=== PATIENT | female | born 1960 | race Caucasian/White ===

== ENCOUNTER 2019-12-31 06:28 | Inpatient (IN) ==
[2019-12-31] MEDS ORDERED: 0.9 % Sodium Chloride 1,000 ML IVC ONE (06:58)
[2019-12-31] MEDS ORDERED: Ondansetron 4 MG/2 ML VIAL IVP ONE ×2 (06:58→08:41)
[2019-12-31] MEDS ORDERED: *HR* HYDROmorphone (PF) 1 MG/ML SYRINGE IVP ONE ×2 (06:59→08:41)
[2019-12-31 07:17] LABS: Basophils # 0.1 K/mcL (0.0-0.2); Basophils % 0.9 %; Eosinophils % 0.3 %; Hemoglobin 13.9 g/dL (11.5-15.4); Immature Granulocytes % 0.4 % (0-4); Lymphocytes # 1.1 K/mcL (0.6-4.6); Lymphocytes % 16.5 %; Mean Corpuscular HGB Conc 32.3 g/dL (31.6-35.5); Mean Corpuscular Hemoglobin 30.5 pg (28.0-33.3); Mean Corpuscular Volume 94.3 fL (83.0-100.0); Mean Platelet Volume 9.5 fL (9.4-12.4); Monocytes # 0.4 K/mcL (0.0-1.3); Monocytes % 6.2 %; Neutrophils # 5.2 K/mcL (1.6-8.9); Platelet Count 318 K/mcL (140-400); Red Blood Count 4.56 M/mcL (3.82-4.97); Red Cell Distribution Width 12.7 % (11.5-14.5); Segmented Neutrophils % 75.7 %; White Blood Count 6.9 K/mcL (4.3-11.1)
[2019-12-31 08:00] LABS: Alanine Aminotransferase 31 Units/L (7-52); Albumin 4.8 g/dL (3.5-5.7); Albumin/Globulin Ratio 1.7 (1.1-2.2); Alkaline Phosphatase 70 Units/L (34-104); Aspartate Amino Transferase 30 Units/L (13-39); BUN/Creatinine Ratio 20 (6-26); Bilirubin,Direct 0.1 mg/dL (0.0-0.2); Bilirubin,Indirect 0.3 mg/dL (0.0-1.0); Bilirubin,Total 0.4 mg/dL (0.3-1.0); Blood Urea Nitrogen 16 mg/dL (6-20); Calcium 9.6 mg/dL (8.6-10.3); Carbon Dioxide 24 mEq/L (23-29); Chloride 104 mEq/L (98-107); Globulin 2.8 g/dL (2.4-3.5); Glucose 121 mg/dL (70-105); Osmolality,Calculated 290 (280-300); Potassium 3.8 mEq/L (3.5-5.1); Sodium 139 mEq/L (136-145); Total Protein 7.6 g/dL (6.4-8.9); Troponin I < 0.03 ng/mL (< 0.04); eGFR For African Americans > 60 (> 60); eGFR For Non-African Americans > 60 (> 60)
[2019-12-31] MEDS ORDERED: GI Cocktail 40 ML EACH PO ONE (08:20)
[2019-12-31] MEDS ORDERED: Pantoprazole 40 MG VIAL IVP ONE (08:20)
[2019-12-31 08:40] LABS: Lipase 70 Units/L (11-82)
[2019-12-31] MEDS ORDERED: Naloxone 0.4 MG/ML INJ IVP PRN ×2 (09:13→18:59)
[2019-12-31] MEDS ORDERED: Isovue-370 500 ML BOTTLE IVP ONE (09:14)
[2019-12-31] MEDS ORDERED: Ringers Solution, Lactated 1,000 ML IVC SCH (09:15)
[2019-12-31] MEDS ORDERED: Ondansetron 4 MG/2 ML VIAL IVP PRN ×3 (09:16→18:59)
[2019-12-31] MEDS ORDERED: Morphine Sulfate 2 MG/ML SYRINGE IVP PRN (09:17)
[2019-12-31] MEDS ORDERED: *HR* FentaNYL (PF) 100 MCG/2 ML VIAL ONE ×2 (13:06→14:39)
[2019-12-31] MEDS ORDERED: *HR* Midazolam HCl 2 MG/2 ML VIAL ONE (13:06)
[2019-12-31] MEDS ORDERED: *HR* Propofol 200 MG/20 ML VIAL IVP ONE (13:07)
[2019-12-31] MEDS ORDERED: Lidocaine HCL 4 ML Topical Solution (Laryng-O-Jet Kit Sterile Pak) TP ONE (13:12)
[2019-12-31] MEDS ORDERED: Acetaminophen IV 1,000 MG/100 ML INFUS..BTL ONE (14:12)
[2019-12-31] MEDS ORDERED: Ondansetron 4 MG/2 ML VIAL ONE (15:27)
[2019-12-31] MEDS ORDERED: Lidocaine -MPF 2% 2 ML VIAL ONE (15:28)
[2019-12-31] MEDS ORDERED: *HR* Rocuronium Bromide 50 MG/5 ML VIAL ONE ×2 (15:28→15:49)
[2019-12-31] MEDS ORDERED: CefOXitin 2,000 MG VIAL ONE (15:28)
[2019-12-31] MEDS ORDERED: *HR* Succinylcholine 200 MG/10 ML VIAL IVP ONE (15:28)
[2019-12-31] MEDS ORDERED: *HR* HYDROMORPHONE 2 MG/ML VIAL ONE (17:01)
[2019-12-31] MEDS ORDERED: *HR* HYDROmorphone PF 0.5 MG/0.5 ML SYRINGE IVP PRN (17:29)
[2019-12-31] MEDS ORDERED: *HR* FentaNYL (PF) 100 MCG/2 ML VIAL IVP PRN (17:29)
[2019-12-31] MEDS: *HR* Midazolam HCl 2 MG/2 ML VIAL IVP PRN ×2 (17:44→18:03)
[2019-12-31] MEDS ORDERED: Pantoprazole 40 MG VIAL IVP SCH (18:00)
[2019-12-31] MEDS ORDERED: *HR* Heparin 5,000 UNIT/ML VIAL SQ SCH (18:00)
[2019-12-31] MEDS: 0.9 % Sodium Chloride 1,000 ML IVC SCH (20:54)
[2019-12-31] MEDS: Morphine PCA 30 MG/ 30 ML 30 ML PCA.VIAL IVC PRN (20:54)
[2020-01-01] MEDS: Pantoprazole 40 MG VIAL IVP SCH ×2 (06:12→18:17)
[2020-01-01] MEDS: *HR* Heparin 5,000 UNIT/ML VIAL SQ SCH ×2 (06:12→18:17)
[2020-01-01] MEDS: 0.9 % Sodium Chloride 1,000 ML IVC SCH ×2 (06:13→16:35)
[2020-01-01 08:57] LABS: Basophils % 0.2 %; Eosinophils % 0.1 %; Hematocrit 40.7 % (35.3-44.9); Hemoglobin 12.9 g/dL (11.5-15.4); Immature Granulocytes % 0.3 % (0-4); Lymphocytes # 1.5 K/mcL (0.6-4.6); Lymphocytes % 12.8 %; Mean Corpuscular HGB Conc 31.7 g/dL (31.6-35.5); Mean Corpuscular Hemoglobin 30.1 pg (28.0-33.3); Mean Corpuscular Volume 95.1 fL (83.0-100.0); Monocytes # 0.8 K/mcL (0.0-1.3); Monocytes % 6.5 %; Neutrophils # 9.3 K/mcL (1.6-8.9); Platelet Count 283 K/mcL (140-400); Red Blood Count 4.28 M/mcL (3.82-4.97); Red Cell Distribution Width 13.1 % (11.5-14.5); Segmented Neutrophils % 80.1 %; White Blood Count 11.6 K/mcL (4.3-11.1)
[2020-01-01 09:17] LABS: BUN/Creatinine Ratio 28 (6-26); Blood Urea Nitrogen 16 mg/dL (6-20); Calcium 8.3 mg/dL (8.6-10.3); Carbon Dioxide 23 mEq/L (23-29); Chloride 106 mEq/L (98-107); Glucose 100 mg/dL (70-105); Osmolality,Calculated 281 (280-300); Potassium 4.1 mEq/L (3.5-5.1); Sodium 135 mEq/L (136-145); eGFR For African Americans > 60 (> 60); eGFR For Non-African Americans > 60 (> 60)
[2020-01-01 10:00] LABS: Magnesium 1.8 mg/dL (1.6-2.6); Phosphorous 2.7 mg/dL (2.7-4.5)
[2020-01-01] MEDS: Morphine PCA 30 MG/ 30 ML 30 ML PCA.VIAL IVC PRN (11:06)
[2020-01-01] MEDS ORDERED: Ketorolac 30 MG/ML VIAL IVP ONE (11:35)
[2020-01-01] MEDS ORDERED: Acetaminophen IV 1,000 MG/100 ML INFUS..BTL IVPB ONE (11:35)
[2020-01-01] MEDS: Ketorolac 15 MG/ML VIAL IVP SCH ×2 (12:02→18:17)
[2020-01-02] MEDS: Ketorolac 15 MG/ML VIAL IVP SCH ×4 (00:56→20:09)
[2020-01-02 05:07] LABS: Basophils # 0.1 K/mcL (0.0-0.2); Basophils % 0.5 %; Eosinophils # 0.1 K/mcL (0.0-0.6); Eosinophils % 0.6 %; Hematocrit 36.4 % (35.3-44.9); Hemoglobin 11.6 g/dL (11.5-15.4); Immature Granulocytes % 0.4 % (0-4); Lymphocytes % 17.4 %; Mean Corpuscular HGB Conc 31.9 g/dL (31.6-35.5); Mean Corpuscular Hemoglobin 30.5 pg (28.0-33.3); Mean Corpuscular Volume 95.8 fL (83.0-100.0); Mean Platelet Volume 10.4 fL (9.4-12.4); Monocytes # 0.9 K/mcL (0.0-1.3); Monocytes % 7.6 %; Neutrophils # 8.3 K/mcL (1.6-8.9); Nucleated Red Blood Cells 0.2 /100 WBC (0); Platelet Count 226 K/mcL (140-400); Red Cell Distribution Width 13.2 % (11.5-14.5); Segmented Neutrophils % 73.5 %; White Blood Count 11.3 K/mcL (4.3-11.1)
[2020-01-02 05:18] LABS: BUN/Creatinine Ratio 29 (6-26); Blood Urea Nitrogen 17 mg/dL (6-20); Calcium 7.9 mg/dL (8.6-10.3); Carbon Dioxide 16 mEq/L (23-29); Chloride 108 mEq/L (98-107); Glucose 61 mg/dL (70-105); Osmolality,Calculated 281 (280-300); Sodium 136 mEq/L (136-145); eGFR For African Americans > 60 (> 60); eGFR For Non-African Americans > 60 (> 60)
[2020-01-02] MEDS ORDERED: *HR* Dextrose 50 % in Water (Vial) 50 ML VIAL IVP ONE (05:29)
[2020-01-02] MEDS ORDERED: *HR* Dextrose 50 % in Water (Vial) 50 ML VIAL IVP PRN (05:55)
[2020-01-02] MEDS: Pantoprazole 40 MG VIAL IVP SCH ×2 (06:06→20:10)
[2020-01-02] MEDS: *HR* Heparin 5,000 UNIT/ML VIAL SQ SCH ×2 (06:07→20:09)
[2020-01-02] MEDS: 0.9 % Sodium Chloride 1,000 ML IVC SCH (06:08)
[2020-01-02] MEDS ORDERED: Sodium Bicarbonate 50 MEQ in 0.45 % Sodium Chloride 1,000 ML IVC SCH (08:00)
[2020-01-02] MEDS: D5% in 0.45% NACL w KCl 20 MEQ/1,000 ML MLS IVC SCH (14:56)
[2020-01-02] MEDS: Morphine PCA 30 MG/ 30 ML 30 ML PCA.VIAL IVC PRN (17:59)
[2020-01-03] MEDS: Ketorolac 15 MG/ML VIAL IVP SCH ×3 (05:19→11:23)
[2020-01-03] MEDS: Pantoprazole 40 MG VIAL IVP SCH ×2 (05:19→18:48)
[2020-01-03] MEDS: *HR* Heparin 5,000 UNIT/ML VIAL SQ SCH ×2 (05:20→17:02)
[2020-01-03] MEDS: D5% in 0.45% NACL w KCl 20 MEQ/1,000 ML MLS IVC SCH (05:29)
[2020-01-03 07:05] LABS: Basophils # 0.1 K/mcL (0.0-0.2); Basophils % 0.7 %; Eosinophils # 0.2 K/mcL (0.0-0.6); Eosinophils % 2.2 %; Hematocrit 31.7 % (35.3-44.9); Hemoglobin 10.1 g/dL (11.5-15.4); Immature Granulocytes % 0.3 % (0-4); Lymphocytes # 1.5 K/mcL (0.6-4.6); Lymphocytes % 19.5 %; Mean Corpuscular HGB Conc 31.9 g/dL (31.6-35.5); Mean Corpuscular Hemoglobin 30.7 pg (28.0-33.3); Mean Corpuscular Volume 96.4 fL (83.0-100.0); Monocytes # 0.6 K/mcL (0.0-1.3); Monocytes % 7.8 %; Neutrophils # 5.3 K/mcL (1.6-8.9); Platelet Count 235 K/mcL (140-400); Red Blood Count 3.29 M/mcL (3.82-4.97); Segmented Neutrophils % 69.5 %; White Blood Count 7.6 K/mcL (4.3-11.1)
[2020-01-03 07:09] LABS: BUN/Creatinine Ratio 12 (6-26); Blood Urea Nitrogen 6 mg/dL (6-20); Calcium 8.3 mg/dL (8.6-10.3); Carbon Dioxide 26 mEq/L (23-29); Chloride 106 mEq/L (98-107); Glucose 115 mg/dL (70-105); Osmolality,Calculated 283 (280-300); Potassium 3.3 mEq/L (3.5-5.1); Sodium 137 mEq/L (136-145); eGFR For African Americans > 60 (> 60); eGFR For Non-African Americans > 60 (> 60)
[2020-01-03] MEDS ORDERED: Acetaminophen 325 MG TABLET PO PRN (10:31)
[2020-01-03] MEDS ORDERED: Ondansetron 4 MG/2 ML VIAL IVP PRN (10:32)
[2020-01-03] MEDS: (Lamotrigine [Lamictal Xr] 50 MG) PO SCH (20:49)
[2020-01-04] MEDS ORDERED: Morphine Sulfate 2 MG/ML SYRINGE IVP ONE (00:11)
[2020-01-04] MEDS: 0.9 % Sodium Chloride 1,000 ML IVC SCH (01:52)
[2020-01-04] MEDS: Pantoprazole 40 MG VIAL IVP SCH (06:23)
[2020-01-04] MEDS: *HR* Heparin 5,000 UNIT/ML VIAL SQ SCH ×2 (06:23→18:49)
[2020-01-04 06:34] LABS: Basophils % 0.5 %; Eosinophils # 0.2 K/mcL (0.0-0.6); Hematocrit 32.8 % (35.3-44.9); Hemoglobin 10.9 g/dL (11.5-15.4); Immature Granulocytes % 0.3 % (0-4); Lymphocytes # 1.1 K/mcL (0.6-4.6); Lymphocytes % 17.5 %; Mean Corpuscular HGB Conc 33.2 g/dL (31.6-35.5); Mean Corpuscular Hemoglobin 31.2 pg (28.0-33.3); Monocytes # 0.6 K/mcL (0.0-1.3); Monocytes % 9.9 %; Neutrophils # 4.3 K/mcL (1.6-8.9); Platelet Count 269 K/mcL (140-400); Red Blood Count 3.49 M/mcL (3.82-4.97); Red Cell Distribution Width 13.1 % (11.5-14.5); Segmented Neutrophils % 68.8 %; White Blood Count 6.3 K/mcL (4.3-11.1)
[2020-01-04 07:10] LABS: BUN/Creatinine Ratio 15 (6-26); Blood Urea Nitrogen 7 mg/dL (6-20); Calcium 8.5 mg/dL (8.6-10.3); Carbon Dioxide 25 mEq/L (23-29); Chloride 105 mEq/L (98-107); Glucose 113 mg/dL (70-105); Magnesium 1.6 mg/dL (1.6-2.6); Osmolality,Calculated 285 (280-300); Phosphorous 2.4 mg/dL (2.7-4.5); Sodium 138 mEq/L (136-145); eGFR For African Americans > 60 (> 60); eGFR For Non-African Americans > 60 (> 60)
[2020-01-04] MEDS ORDERED: Orphenadrine 60 MG/2 ML VIAL IVP ONE (07:59)
[2020-01-04] MEDS ORDERED: Potassium Phosphate 44 MEQ in 0.9 % Sodium Chloride 250 ML IVPB ONE (09:00)
[2020-01-04] MEDS: Ibuprofen 800 MG TABLET PO SCH ×3 (09:29→23:53)
[2020-01-04] MEDS ORDERED: Potassium Chloride 40 MEQ, Lidocaine 1% 2 ML in 0.9 % Sodium Chloride 500 ML IVPB ONE (09:47)
[2020-01-04] MEDS: Acetaminophen 325 MG TABLET PO SCH ×2 (13:20→20:26)
[2020-01-04] MEDS: (Lamotrigine [Lamictal Xr] 50 MG) PO SCH (20:27)
[2020-01-04] MEDS: *HR* OxyCODONE/APAP 5/325 TABLET PO PRN (23:57)
[2020-01-05] MEDS: Acetaminophen 325 MG TABLET PO SCH (03:05)
[2020-01-05] MEDS: *HR* Heparin 5,000 UNIT/ML VIAL SQ SCH (06:16)
[2020-01-05] MEDS: *HR* OxyCODONE/APAP 5/325 TABLET PO PRN (06:16)
[2020-01-05 06:40] LABS: Basophils # 0.1 K/mcL (0.0-0.2); Basophils % 0.9 %; Eosinophils # 0.3 K/mcL (0.0-0.6); Eosinophils % 5.3 %; Hematocrit 32.1 % (35.3-44.9); Hemoglobin 10.4 g/dL (11.5-15.4); Immature Granulocytes % 0.4 % (0-4); Lymphocytes # 1.2 K/mcL (0.6-4.6); Lymphocytes % 22.8 %; Mean Corpuscular HGB Conc 32.4 g/dL (31.6-35.5); Mean Corpuscular Hemoglobin 30.3 pg (28.0-33.3); Mean Corpuscular Volume 93.6 fL (83.0-100.0); Mean Platelet Volume 9.6 fL (9.4-12.4); Monocytes # 0.8 K/mcL (0.0-1.3); Monocytes % 13.8 %; Neutrophils # 3.1 K/mcL (1.6-8.9); Platelet Count 296 K/mcL (140-400); Red Blood Count 3.43 M/mcL (3.82-4.97); Red Cell Distribution Width 13.1 % (11.5-14.5); Segmented Neutrophils % 56.8 %; White Blood Count 5.4 K/mcL (4.3-11.1)
[2020-01-05 07:00] LABS: BUN/Creatinine Ratio 18 (6-26); Blood Urea Nitrogen 9 mg/dL (6-20); Calcium 8.4 mg/dL (8.6-10.3); Carbon Dioxide 26 mEq/L (23-29); Chloride 107 mEq/L (98-107); Glucose 98 mg/dL (70-105); Osmolality,Calculated 287 (280-300); Phosphorous 2.9 mg/dL (2.7-4.5); Potassium 3.5 mEq/L (3.5-5.1); Sodium 139 mEq/L (136-145); eGFR For African Americans > 60 (> 60); eGFR For Non-African Americans > 60 (> 60)
[2020-01-05] MEDS: Ibuprofen 800 MG TABLET PO SCH (07:10)
[2020-01-05 07:43] VITALS: BP 130/86
== END 2020-01-05 11:00 | disposition home or self-care (01) | DRG 327 ==
LOC: 3ANU 06:28 → EMEROOARM 06:28 → 3ANU 10:13 → SUATTDRO 18:05
PROVIDERS: ADMIT Internal Medicine; ATTEND Family Medicine